=== PATIENT | male | born 1945 | race Caucasian/White ===

== ENCOUNTER 2017-02-08 09:10 | Day surgery (SDC) | payer OTHER, MEDICARE ==
[~2017-02-08] VITALS: Ht 167.6 cm; Wt 65.8 kg
[~2017-02-08 09:10] MED LIST: ASPIR 8181 M1 PO; CALCIUM 600 +1 EAC9 PO; CELEBREX200 MG PO; CLARITIN,ALAVAR10 MG PO; CLARITIN-D 21 TABLET PO; COUMADIN2.5 MG PO; FISH OIL 1,0001 EAC7 PO; GLUCOSAMINE CH1 EACH PO; IRON325 M1 PO; KLONOPIN1 MG PO; MEN'S MULTI-VI1 EACH PO; MILLIPRED DP5 MG PO; PATANOL OP100 DROP/5 BOTH EYES; PERCOCET 5/31 TABLET PO; PREDNISONE1 MG PO; PREDNISONE5 MG PO; PRESERVISION T1 EACH PO; SAW PALMETTO500 MG PO; SINEQUAN10 MG PO; SINGULAIR10 MG PO; SUPER B-50 COM1 EACH PO; TEARS AGAIN15 ML BOTH EYES; TRAVATAN Z5 ML BOTH EYES; VISTARIL25 MG PO; VITAMIN B-6100 MG PO; VITAMIN C1000 MG PO; VITAMIN D31000 UNIT PO; VITAMIN E400 UNIT PO; ZINC50 M1 PO
== END 2017-02-08 11:22 | disposition home or self-care (01) ==
LOC: PAIN 09:10 → SDC 10:15 → PAIN 11:22
PROC: 3E0S33Z Introduction of Anti-inflammatory into Epidural Space, Percutaneous Approach (ICD-10-PCS; principal; 2017-02-08)
DX: M50.13 Cervical disc disorder with radiculopathy, cervicothoracic region (principal); F41.9 Anxiety disorder, unspecified; G89.29 Other chronic pain; M54.5 Low back pain; M12.819 Other specific arthropathies, not elsewhere classified, unspecified shoulder; M25.561 Pain in right knee; M25.562 Pain in left knee
CPT/HCPCS: J1030; J2250; J3010

== ENCOUNTER 2017-03-14 14:39 | Day surgery (SDC) | payer OTHER, MEDICARE ==
[~2017-03-14] VITALS: Ht 167.6 cm; Wt 65.8 kg
[~2017-03-14 14:39] MED LIST changes: +ADVIL,NUPRIN,M200 MG PO; +GARLIC1000 MG PO; +GINGER ROOT550 MG PO; +GINKGO BILOBA120 M1 PO; +TYLENOL ARTHRI650 MG PO; +VITAMIN A8000 UNIT PO; +VITAMIN B-12 PO; +VITAMIN D35000 UNIT PO
== END 2017-03-14 16:00 | disposition home or self-care (01) ==
LOC: PAIN 14:39 → SDC 14:45 → PAIN 16:00
PROC: 3E0R33Z Introduction of Anti-inflammatory into Spinal Canal, Percutaneous Approach (ICD-10-PCS; principal; 2017-03-14)
DX: M54.12 Radiculopathy, cervical region (principal); G89.29 Other chronic pain; M51.16 Intervertebral disc disorders with radiculopathy, lumbar region; M48.06 Spinal stenosis, lumbar region; D64.9 Anemia, unspecified; M06.9 Rheumatoid arthritis, unspecified; Z79.82 Long term (current) use of aspirin
CPT/HCPCS: J1030; J2250; J3010